=== PATIENT | male | born 2000 ===

== ENCOUNTER 2021-02-27 22:07 | Emergency (ER) | payer SELFPAY ==
[2021-02-27] MEDS ORDERED: Propofol 200 MG/20 ML SDV IV ONE (22:08)
--- NOTE | 2021-02-27 22:19 | EDM.PDOC ---
ED [facility] GENERAL MEDICAL PROBLEM - General Chief Complaint: Upper Extremity Injury/Pain Time Seen by Provider: 02/27/21 22:10 Source of Information: Reports: Patient History Limitations: Reports: No Limitations - History of Present Illness INITIAL COMMENTS - FREE TEXT/NARRATIVE: This 21 yo male patient was brought to the ED by [facility] and [facility] due to pain/deformity of his right shoulder. The patient reports he was on the porch with his dog when the leash got wrapped around his legs and he fell down the stairs. The patient reports there are 3 sets of stairs where he fell. The patient reports he caught himself on the first set of stairs, but fell down the second set of stairs. EMS had given the patient 1 mg of Dilaudid x2 prior to arrival in the ED. The patient reports he dislocated his shoulder about 1 month ago playing basketball. The patient denies any additional pain. The patient reports no loss of consciousness before, during or after the fall. Onset: Today Duration: Minutes: Location: Reports: Upper Extremity, Right Quality: Reports: Ache, Sharp Severity: Moderate Improves with: Reports: Immobilization Worsens with: Reports: Movement Context: Reports: Activity Associated Symptoms: Reports: No Other Symptoms Review of Systems - Review of Systems Review Of Systems: Comprehensive ROS is negative, except as noted in HPI. ED EXAM, GENERAL - Physical Exam Exam: See Below Exam Limited By: No Limitations General Appearance: Alert, WD/WN, Moderate Distress Eye Exam: Bilateral Eye: EOMI Ears: Normal External Exam, Hearing Grossly Normal Nose: Normal Inspection, No Blood Throat/Mouth: Normal Lips, Normal Teeth, Normal Voice, No Airway Compromise Head: Atraumatic, Normocephalic Neck: Full Range of Motion Respiratory/Chest: No Respiratory Distress, Lungs Clear, Normal Breath Sounds, No Accessory Muscle Use, Chest Non-Tender Cardiovascular: Normal Peripheral Pulses, Regular Rate, Rhythm, No Edema, No Gallop, No JVD, No Murmur, No Rub (Male) Exam: Deferred Rectal (Males) Exam: Deferred Extremities: Arm Pain (Right shoulder pain with deformity) Neurological: Alert, Oriented, CN II-XII Intact, Normal Cognition Psychiatric: Normal Affect, Normal Mood Skin Exam: Warm, Dry, Normal Color, No Rash Lymphatic: No Adenopathy ED TRAUMA EXTREMITY PROCEDURES - Joint Reduction Right Shoulder Sedation: Conscious Sedation Pre-Procedure NV Status: Normal Post-Procedure NV Status: Normal Technique: Traction/Counter Traction Number of Attempts: 1 Post-Reduction Imaging: Completely Reduced, No Fracture Seen Joint Reduction Complications: No Course - Orders/Labs/Meds Orders: Active Orders 24 hr Category Date Time Status Shoulder 1V Rt [CR] Urgent Exams 02/27/21 22:28 Taken Shoulder Comp Rt [CR] Urgent Exams 02/27/21 22:11 Taken Meds: Medications Discontinued Medications Generic Name Dose Route Start Last Admin Trade Name Karmen PRN Reason Stop Dose Admin Hydrocodone Bitart/Acetaminophen 1 tab 02/27/21 23:10 02/27/21 23:19 Acetaminophen/Hydrocodone 325-10 Mg Tab PO 02/27/21 23:11 1 tab ONETIME ONE Administration - Radiology Interpretation Free Text/Narrative:: [facility] Final Radiology Report Call: [phone] assistance Online chat: [email or web address] Name: ELVIRA CASTREJON Age: 21Years M Date: 02/27/2021 SSN: -- : 2000 Study: CR SHOULDER COMP RT Requesting Physician: Gabino Manzo Images: 2 Addl Studies: Provided Clinical History: Fell down stairs (shoulder dislocation) Contrast: Contrast Medium: Contrast Amount: Contrast Method: CONFIDENTIALITY STATEMENT This report is intended only for use by the referring physician, and only in accordance with law. If you received this in error, call [phone]. Page 1 of 1 PROCEDURE INFORMATION: Exam: XR Right Shoulder Exam date and time: 02/27/2021 10:19 PM Age: 21 years old Clinical indication: Other: Pain; Additional info: Fell down stairs (shoulder dislocation) TECHNIQUE: Imaging protocol: XR Right shoulder. Views: 2 or more views. COMPARISON: No relevant prior studies available. FINDINGS: Bones/joints: Anterior and inferior dislocation of the right humerus. No definite fracture, but post reduction shoulder radiograph is recommended. Soft tissues: Normal. IMPRESSION: Anterior right shoulder dislocation. Thank you for allowing us to participate in the care of your patient. Dictated and Authenticated by: Yves Harris MD 02/27/2021 11:23 PM Central Time ([place] & [place]) [facility] [place] [facility] Final Radiology Report Call: [phone] assistance Online chat: [email or web address] Name: ELVIRA CASTREJON Age: 21Years M Date: 02/27/2021 SSN: -- : 2000 Study: CR SHOULDER 1V RT Requesting Physician: Gabino Manzo Images: 1 Addl Studies: Provided Clinical History: Post reduction Contrast: Contrast Medium: Contrast Amount: Contrast Method: CONFIDENTIALITY STATEMENT This report is intended only for use by the referring physician, and only in accordance with law. If you received this in error, call [phone]. Page 1 of 1 PROCEDURE INFORMATION: Exam: XR Right Shoulder Exam date and time: 02/27/2021 10:39 PM Age: 21 years old Clinical indication: Other: Post reduction; Additional info: Post reduction TECHNIQUE: Imaging protocol: XR Right shoulder. Views: 1 view. COMPARISON: CR Shoulder Comp Rt 02/27/2021 10:19 PM FINDINGS: Bones/joints: Single view demonstrates possible fracture in the superolateral right humerus. The glenoid appears normal. AC joint appears normal. Single view demonstrates improved alignment. Soft tissues: Normal. IMPRESSION: Improved alignment. Follow-up shoulder series recommended once the patient can tolerate the exam. Thank you for allowing us to participate in the care of your patient. Dictated and Authenticated by: Yves Harris MD 02/27/2021 11:24 PM Central Time ([place] & [place]) Departure - Departure Time of Disposition: 23:26 Disposition: Home, Self-Care 01 Condition: Fair Clinical Impression: Dislocation of right shoulder joint Qualifiers: Encounter type: initial encounter Qualified Code(s): S43.004A - Unspecified dislocation of right shoulder joint, initial encounter - Discharge Information *PRESCRIPTION DRUG MONITORING PROGRAM REVIEWED*: Not Applicable *COPY OF PRESCRIPTION DRUG MONITORING REPORT IN PATIENT MYRNA: Not Applicable Instructions: Moderate Conscious Sedation, Adult, Care After, Shoulder Dislocation, [id number] Forms: ED Department Discharge Care Plan Goals: The patient was advised of the examination, initial x-ray results and final x- ray results during the visit. The patient was sedated for the right shoulder joint reduction. The shoulder was reduced without incident. The patient was placed in a right shoulder immobilizer after reduction. The patient was encouraged to continue to wear the immobilizer over the next week. The patient should follow-up with his primary care facility in about 1 week for further x- rays to look at the superior lateral right humerus. If the patient has any additional symptoms or concerns, the patient should either return to the emergency department or visit his primary care facility. - My Orders Last 24 Hours: My Active Orders 02/27/21 22:11 Shoulder Comp Rt [CR] Urgent 02/27/21 22:28 Shoulder 1V Rt [CR] Urgent - Assessment/Plan Last 24 Hours: My Active Orders 02/27/21 22:11 Shoulder Comp Rt [CR] Urgent 02/27/21 22:28 Shoulder 1V Rt [CR] Urgent
[2021-02-27] MEDS ORDERED: Sodium Chloride 0.9% 1,000 ML IV ONE (22:25)
[2021-02-27] MEDS ORDERED: Acetaminophen/HYDROcodone 325-10 MG Tab PO ONE (23:10)
--- NOTE | 2021-02-27 23:23 | CR ---
PROCEDURE INFORMATION: Exam: XR Right Shoulder Exam date and time: 02/27/2021 10:19 PM Age: 21 years old Clinical indication: Other: Pain; Additional info: Fell down stairs (shoulder dislocation) TECHNIQUE: Imaging protocol: XR Right shoulder. Views: 2 or more views. COMPARISON: No relevant prior studies available. FINDINGS: Bones/joints: Anterior and inferior dislocation of the right humerus. No definite fracture, but post reduction shoulder radiograph is recommended. Soft tissues: Normal. IMPRESSION: Anterior right shoulder dislocation.
--- NOTE | 2021-02-27 23:24 | CR ---
PROCEDURE INFORMATION: Exam: XR Right Shoulder Exam date and time: 02/27/2021 10:39 PM Age: 21 years old Clinical indication: Other: Post reduction; Additional info: Post reduction TECHNIQUE: Imaging protocol: XR Right shoulder. Views: 1 view. COMPARISON: CR Shoulder Comp Rt 02/27/2021 10:19 PM FINDINGS: Bones/joints: Single view demonstrates possible fracture in the superolateral right humerus. The glenoid appears normal. AC joint appears normal. Single view demonstrates improved alignment. Soft tissues: Normal. IMPRESSION: Improved alignment. Follow-up shoulder series recommended once the patient can tolerate the exam.
== END 2021-02-27 23:35 | disposition home or self-care (01) ==
LOC: DL.ED 22:07
DX: S43.004A Unspecified dislocation of right shoulder joint, initial encounter (principal); W10.9XXA Fall (on) (from) unspecified stairs and steps, initial encounter
CPT/HCPCS: 23650; 73020; 73030; 99283; 99284; A9270; J2704; J7030; 01620; 01634

== ENCOUNTER 2021-09-06 19:12 | Emergency (ER) | payer SELFPAY ==
[2021-09-06] MEDS ORDERED: Propofol 200 MG/20 ML SDV IV ONE (19:13)
[2021-09-06] MEDS ORDERED: Acetaminophen 500 MG Tab PO ONE (19:13)
[2021-09-06] MEDS ORDERED: Ondansetron 4 MG/2 ML SDV IVPUSH ONE (19:18)
[2021-09-06] MEDS ORDERED: fentaNYL 100 MCG/2 ML SDV IVPUSH ONE (19:18)
[2021-09-06] MEDS ORDERED: Sodium Chloride 0.9% 1,000 ML IV ONE (19:19)
[2021-09-06] MEDS ORDERED: Acetaminophen 500 MG Tab ONE (20:57)
== END 2021-09-06 21:00 ==
LOC: DL.ED 19:12
DX: S43.034A Inferior dislocation of right humerus, initial encounter (principal); Z72.0 Tobacco use; W01.0XXA Fall on same level from slipping, tripping and stumbling without subsequent striking against object, initial encounter
CPT/HCPCS: 23650; 73020; 96374; 96375; 99283; A9270; J2405; J2704; J3010; J7030; 01634